=== PATIENT | male | born 1950 | race Hispanic/Latino ===

== ENCOUNTER 2016-07-31 17:22 | Outpatient (CLI) | payer MEDICARE ==
--- NOTE | 2016-07-31 17:53 | RAD ---
CHEST TWO VIEWS: 07/31/16 COMPARISON: 12/19/14 study. HISTORY: Dyspnea. The parenchymal lung changes extending from the right hilum and the left base are stable as compared to the prior study. No new process demonstrated. IMPRESSION: Stable exam. POS: [facility]
== END 2016-07-31 17:23 | disposition home or self-care (01) ==
LOC: NAV RAD 17:22
PROVIDERS: ATTEND Specialist
DX: M54.6 Pain in thoracic spine (principal)
CPT/HCPCS: 71020

== ENCOUNTER 2022-04-17 12:18 | Outpatient (CLI) | payer MEDICARE | END 2022-04-17 12:19 | disposition home or self-care (01) | LOC: NAV RAD 12:18 | PROVIDERS: ATTEND Nurse Practitioner Family | DX: M25.551 Pain in right hip (principal); M25.552 Pain in left hip ==